=== PATIENT | female | born 2000 | race Two or more races ===

== ENCOUNTER → 2020-04-23 | Emergency (ER) | payer OTHER ==
[~2020-04-23] VITALS: Ht 162.6 cm; Wt 49.9 kg
[2020-04-23 14:40] VITALS: BP 134/72
== END | disposition home or self-care (01) ==
LOC: ER 14:11
DX: U07.1 COVID-19 (principal); J02.9 Acute pharyngitis, unspecified
CPT/HCPCS: 71045; 99284; U0003